=== PATIENT | female | born 1980 | race Caucasian/White ===

== ENCOUNTER → 2018-11-03 07:36 | Outpatient (CLI) | payer MEDICARE, OTHER, SELFPAY ==
--- NOTE | 2018-11-03 | DI.MRI.S_ITS ---
PROCEDURE: MR HEAD/BRAIN WO/W CON INDICATIONS: MULTIPLE SCLEROSIS TECHNIQUE: Noncontrast sagittal and axial FLAIR, axial and coronal T2 fast spin echo, axial VIBE, axial gradient echo, axial diffusion and ADC through the brain. After the administration of contrast, axial and coronal VIBE with fat saturation through the brain. COMPARISON: [facility], , MRI HEAD W/WO CONTRAST, 02/27/2016, 8:00. [facility], , MRI HEAD W/WO CONTRAST, 03/11/2015, 8:39. [facility], , MRI HEAD W/WO CONTRAST, 08/21/2013, 15:42. FINDINGS: Image quality: Excellent. CSF spaces: Ventricles are normal in size and shape. Basal cisterns are patent. No extra-axial fluid collections. Brain: Numerous foci of T2 weighted hyperintensity can be seen within the periventricular and deep white matter. Several periventricular lesions demonstrate a perpendicular orientation to the lateral ventricles. T2 hyperintense white matter lesions are seen involving the subcortical white matter. There is involvement of the corpus callosum. There are a few T2 hyperintense lesions seen within the medulla. There is a lesion involving the right middle cerebellar peduncle. When comparison is made with 2016, the white matter lesions are overall slightly more prominent. No abnormal enhancement is seen to suggest acute demyelinating lesions. No intracranial bleeds or mass effects. Rollins-white matter interface appears intact. No abnormal intracranial enhancement. Diffusion weighted images show no acute ischemic insults. Brainstem appears normal. Normal intravascular flow voids are present. Skull and face: Calvarial marrow signal is normal. Orbits appear normal. Sinuses: Sinuses and mastoids are clear. IMPRESSION: There is a relatively prominent burden of multiple sclerosis plaques seen, which are slightly more prominent on the current study than in 2016. No abnormal enhancement can be seen. Dictated by: Black Viramontes M.D. on 11/03/2018 at 10:15 Approved by: Black Viramontes M.D. on 11/03/2018 at 10:21
== END ==
PROVIDERS: Visit Provider Nurse Practitioner Family
DX: G35 Multiple sclerosis (principal)
CPT/HCPCS: 70553; A9579